=== PATIENT | male | born 2005 | race Caucasian/White ===

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

== ENCOUNTER → 2025-07-06 | Outpatient (CLI) | payer OTHER, SELFPAY ==
[2025-07-06 10:51] LABS: Alanine Aminotransferase 50 U/L (10-49)
[2025-07-06 12:23] LABS: Vitamin D 25 Hydroxy Total 32.1 ng/mL (7.3-40.2)
[2025-07-11 06:39] LABS: Insulin* 37.4 uIU/mL (< OR = 18.4)
== END | disposition home or self-care (01) ==
PROVIDERS: PCP Pediatrics Pediatric Endocrinology; Referring Provider Pediatrics Pediatric Endocrinology; Visit Provider Pediatrics Pediatric Endocrinology
DX: E55.9 Vitamin D deficiency, unspecified (principal); R63.5 Abnormal weight gain; Z68.38 Body mass index [BMI] 38.0-38.9, adult
CPT/HCPCS: 36415; 82306; 83525; 84460